=== PATIENT | male | born 1970 ===

== ENCOUNTER 2017-05-09 08:39 | Outpatient (CLI) | payer MEDICARE, MEDICAID ==
--- NOTE | 2017-05-10 11:06 | RAD ---
MODIFIED BARIUM SWALLOW: Date: 05-09-17 History: Evaluate for penetration or aspiration, unspecific dysphagia, feeding difficulties. FINDINGS: A modified barium swallow is provided, performed by a member of the division of speech pathology. The patient is imaged in the lateral projecting swallowing various consistencies of barium. Images demonstrate no evidence of penetration or aspiration. IMPRESSION: No evidence for penetration or aspiration. Please see speech pathologist report for full detail and f alina recommendations. POS: MELECIO
== END 2017-05-09 08:40 | disposition home or self-care (01) ==
PROVIDERS: ATTEND Preventive Medicine Medical Toxicology
DX: I69.191 Dysphagia following nontraumatic intracerebral hemorrhage (principal); R13.10 Dysphagia, unspecified; R63.3 Feeding difficulties
CPT/HCPCS: 74230; G8996-GN-CK; G8997-GN-CK; G8998-GN-CK

== ENCOUNTER 2020-03-16 06:46 | Outpatient (CLI) | payer MEDICARE, MEDICAID ==
[2020-03-17 02:12] LABS: SARS-CoV-2 MS2 Positive; SARS-CoV-2 N Gene Negative; SARS-CoV-2 S Gene Negative; SARS-CoV-2 by NAA Not Detected (NotDetected); SARS-CoV-2 orf1ab Negative
== END 2020-03-16 06:47 | disposition home or self-care (01) ==
LOC: LABBT 06:46
PROVIDERS: ATTEND Internal Medicine
DX: Z12.11 Encounter for screening for malignant neoplasm of colon (principal); Z20.828 Contact with and (suspected) exposure to other viral communicable diseases
CPT/HCPCS: 87635; U0003

== ENCOUNTER 2020-03-19 06:04 | Day surgery (SDC) | payer MEDICARE, MEDICAID ==
[2020-03-18 17:28] VITALS: BMI 19.2
[2020-03-19] MEDS ORDERED: Ketamine 50 MG/ML (10ML VIAL) ONE (07:54)
--- NOTE | 2020-03-19 10:06 | OP ---
DATE OF PROCEDURE: 03/19/2020 PROCEDURE PERFORMED: Colonoscopy with polypectomy. INDICATIONS FOR PROCEDURE: Screening for malignant neoplasm of the colon, no family history of colorectal cancer. DESCRIPTION OF PROCEDURE: After the risks and benefits of the procedure were explained to the patient's surrogate (block sawyer) including risks of bleeding, infection, perforation, reactions to anesthesia, aspiration, and/or pain, informed consent was obtained. The patient was then taken to the endoscopy suite, where he was maneuvered into the left lateral decubitus position, followed by introduction of deep sedation via propofol and ketamine with Anesthesia support. Once adequate sedation was achieved, a digital rectal examination was performed followed by introduction of the standard colonoscope, which was then advanced to the cecum with some difficulty due to significant looping and tortuosity of the colon. The quality of the prep was excellent. The patient tolerated the procedure well with no immediate perioperative complications. On conclusion of the procedure, all equipment was removed from the patient and he was transferred to Day Stay in satisfactory condition. FINDINGS: Digital rectal exam: Normal findings were seen on external examination. Colon findings: Throughout the entire colon, there was a darkening of the colonic mucosa in a leopard skin type appearance consistent with melanosis coli. Normal-appearing mucosa was seen at the appendiceal orifice as well as within the cecum itself. However, a 3 to 4 mm polyp was seen on the ileocecal valve near the orifice to the IC valve and was completely removed with cold snare polypectomy. It was retrieved and placed in a specimen jar for further evaluation. Normal-appearing mucosa was then seen in the ascending colon. A 3 mm polyp was seen in the transverse colon and completely removed with cold snare polypectomy. It was retrieved and placed in a specimen jar for further evaluation. An additional polyp measuring 2 to 3 mm in size was seen in the descending colon and completely removed with cold snare polypectomy. It was retrieved and placed in a specimen jar for further evaluation. Normal-appearing mucosa was then seen in the sigmoid colon. Lastly, a 3 mm polyp was seen in the rectum and completely removed with snare cautery polypectomy. It was retrieved and placed in a specimen jar for further evaluation. It did exhibit some mild bleeding after the polypectomy, but the bleeding stopped with direct visualization. Small internal hemorrhoids were seen on rectal retroflexion. IMPRESSION: 1. 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 2. 3 to 4 mm ileocecal valve polyp, status post cold snare polypectomy. 3. A 3 mm transverse colon polyp, status post cold snare polypectomy. 4. A 2 to 3 mm descending colon polyp, status post cold snare polypectomy. 5. A 3 mm rectal polyp, status post cold snare polypectomy with minimal bleeding afterwards, but stopped with direct visualization. 6. Small internal hemorrhoids. RECOMMENDATIONS: 1. Would follow up on the biopsy results with repeat colonoscopy depending on pathology report. If 2 or less polyps are adenomatous, I would recommend a repeat colonoscopy in 5 years. If 3 or more polyps are adenomatous, would recommend a repeat colonoscopy in 3 years. 2. Would recommend a higher fiber diet. 3. We will continue the patient on daily bowel regimen for probable chronic constipation. 4. Continue current medications. 5. Would have the patient follow up in the GI clinic as needed. Job ID: [id number]
[2020-03-19] MEDS ORDERED: PHENYLEPHRINE-NS 100 MCG/ML 10 ML SYRINGE ONE (11:17)
[2020-03-19] MEDS ORDERED: PROPOFOL 200 MG/20 ML VIAL ONE (11:17)
[2020-03-19] MEDS ORDERED: Lidocaine 1% PF 5 ML VIAL ONE (11:17)
== END 2020-03-19 10:10 | disposition home or self-care (01) ==
LOC: SDC 06:04
PROVIDERS: ATTEND Internal Medicine
PROC: 0DBH8ZZ Excision of Cecum, Via Natural or Artificial Opening Endoscopic (ICD-10-PCS; principal; 2020-03-19)
PROC: 0DBP8ZZ Excision of Rectum, Via Natural or Artificial Opening Endoscopic (ICD-10-PCS; 2020-03-19)
PROC: 0DBM8ZZ Excision of Descending Colon, Via Natural or Artificial Opening Endoscopic (ICD-10-PCS; 2020-03-19)
DX: Z12.11 Encounter for screening for malignant neoplasm of colon (principal); D12.0 Benign neoplasm of cecum; D12.4 Benign neoplasm of descending colon; K62.1 Rectal polyp; K63.5 Polyp of colon; E78.5 Hyperlipidemia, unspecified; G43.909 Migraine, unspecified, not intractable, without status migrainosus; M19.032 Primary osteoarthritis, left wrist; F81.89 Other developmental disorders of scholastic skills
CPT/HCPCS: 88305; J2704